=== PATIENT | male | born 1960 | race Caucasian/White ===

== ENCOUNTER → 2017-01-24 | Outpatient (CLI) | payer OTHER | LOC: BMCIMAGING 15:50 | PROVIDERS: ATTEND Internal Medicine | DX: M47.892 Other spondylosis, cervical region (principal); M43.12 Spondylolisthesis, cervical region; M53.82 Other specified dorsopathies, cervical region; M48.02 Spinal stenosis, cervical region ==

== ENCOUNTER → 2018-01-05 | Outpatient (CLI) | payer OTHER | LOC: FIMAGING 12:53 | PROVIDERS: ATTEND Urology | DX: N20.0 Calculus of kidney (principal) ==

== ENCOUNTER → 2018-02-21 | Outpatient (CLI) | payer OTHER | LOC: FIMAGING 10:29 | PROVIDERS: ATTEND Urology | DX: N20.0 Calculus of kidney (principal); M43.16 Spondylolisthesis, lumbar region; M99.73 Connective tissue and disc stenosis of intervertebral foramina of lumbar region; M48.061 Spinal stenosis, lumbar region without neurogenic claudication; K59.00 Constipation, unspecified ==

== ENCOUNTER → 2018-03-15 | Day surgery (SDC) | payer OTHER | END | disposition home or self-care (01) | LOC: BMCIMAGING 07:28 | PROVIDERS: ATTEND Urology | PROC: BV49ZZZ Ultrasonography of Prostate and Seminal Vesicles (ICD-10-PCS; principal; 2018-03-15) | DX: N40.2 Nodular prostate without lower urinary tract symptoms (principal); R97.20 Elevated prostate specific antigen [PSA] ==

== ENCOUNTER → 2018-03-30 | Outpatient (CLI) | payer OTHER ==
[~2018-03-30] MED LIST: IOPAMIDOL (ISOVUE-300) 100 ML BTL ONE
== END ==
LOC: FIMAGING 08:09
PROVIDERS: ATTEND Urology
DX: C61 Malignant neoplasm of prostate (principal); S22.32XA Fracture of one rib, left side, initial encounter for closed fracture; Y93.51 Activity, roller skating (inline) and skateboarding; N20.0 Calculus of kidney; K59.00 Constipation, unspecified
CPT/HCPCS: 74177; 78306; A9503; Q9967